=== PATIENT | male | born 1985 | race Caucasian/White ===

== ENCOUNTER 2024-01-31 02:21 | Emergency (ER) | payer OTHER, SELFPAY ==
[2024-01-31 02:45] VITALS: BP 131/79; PULSE 77; RESP 17; TEMP 36.4; O2SAT 95; BMI 29.1
[2024-01-31 03:07] VITALS: BP 118/79; PULSE 67; RESP 16; TEMP 36.6; O2SAT 94
[2024-01-31 03:08] LABS: MANUAL DIFF FLAG NO
[2024-01-31 03:10] LABS: Basophils Absolute Auto 0.1 X10*3/uL (0.0-0.2); Basophils Percent Auto 0.5 % (0-2); Eosinophils Absolute Auto 1.1 X10*3/uL (0.0-0.4); Eosinophils Percent Auto 8.8 % (0-4); Hematocrit 45.1 % (42.0-52.0); Hemoglobin 15.6 g/dl (14.0-18.0); Imm Gran Abs Auto 0.08 X10*3/uL (0.00-0.03); Imm Gran Pct Auto 0.7 % (0.0-0.4); Lymphocytes Absolute Auto 3.4 X10*3/uL (1.2-4.9); Lymphocytes Percent Auto 28.4 % (20-40); Mean Corpuscular HGB Conc 34.6 g/dl (31.0-36.0); Mean Corpuscular Hemoglobin 29.3 pg (27.0-33.0); Mean Corpuscular Volume 84.6 fL (80.0-98.0); Mean Platelet Volume 9.5 fL (9.4-12.4); Monocytes Absolute Auto 0.8 X10*3/uL (0.1-1.2); Monocytes Percent Auto 6.4 % (2-11); Neutrophils Absolute Auto 6.7 x10*3/uL (2.0-8.3); Neutrophils Percent Auto 55.2 % (45-73); Platelet Count 235 X10*3/uL (160-400); Red Blood Count 5.33 X10*6/uL (4.60-5.80); Red Cell Distribution Width 12.8 % (11.0-16.0); White Blood Count 12.1 X10*3/uL (4.8-10.8)
[2024-01-31 03:35] LABS: Alanine Aminotransferase 27 U/L (0-40); Albumin Level 4.1 g/dL (3.5-5.0); Alkaline Phosphatase 74 U/L (39-117); Anion Gap 13 (12-20); Aspartate Amino Transferase 21 U/L (5-37); Bilirubin Total 0.2 mg/dL (0.0-1.0); Blood Urea Nitrogen 14 mg/dL (9-16); Calcium 9.5 mg/dL (8.4-10.2); Carbon Dioxide 28 mmol/L (22-29); Chloride 102 mmol/L (96-108); Creatinine Clr Calc Pharmacy 136.5; Estimated Glomerular Filt Rate > 60; Glucose Random 113 mg/dL (60-115); Lipase 32 U/L (8-78); Potassium 4.1 mmol/L (3.3-5.1); Sodium 139 mmol/L (135-145); Total Protein 7.7 g/dL (6.5-8.0)
[2024-01-31 03:46] LABS: Influenza A PCR NEGATIVE (Negative); Influenza B PCR NEGATIVE (Negative); Resp Syncy Virus RNA Qual PCR NEGATIVE (Negative); SARS COV2 PCR INHOUSE NEGATIVE (Negative)
--- OUTSIDE RECORDS SUMMARY | 2024-01-31 04:29 | XMS_ITS | Continuity of Care Document ---
Author Organization [facility] Address [address] [place] [address]- Care Team Providers Care Dredge Boat Engineer Name Role Phone Stephani RODRIGUEZ, Zoë Hay Primary Care Physician [place] [facility] [place](s): 02/09/20 - 02/19/20 [facility] [address] [place] [address]- [facility] Attending Physician: AdmKaila durant Admitting Physician: Admtr, Kaila Referring Physician: Admtr, Ar8 Allergies, Adverse Reactions, Alerts Substance Reaction Severity Status NKA Active Medications Ativan Tablet 1, mg, By Mouth, 3 times a day, 10, 0, 0, 10/03/07 18:10:53, as needed for muscle spasms, Print DEANumber, ADS OPPTHS, 68, Constant Indicator Start Date: 10/03/07 Status: Ordered Flonase 50 mcg/inh nasal spray 1 sprays, Nares, Both, Daily in AM, # 15.8 mL, 1 Refills, Maintenance, 12/09/19 16:19:00 EST, [place], [id number], 1 sprays Nares, Both Daily in AM, 175, cm, 12/09/19 16:09:00 EST, Height Start Date: 12/09/19 Status: Ordered Percocet-5/325 325 mg-5 mg oral tablet 1-2 tablet, By Mouth, Every 4 to 6 hours, PRN Pain , Moderate, # 12 tablet, 0 Refills, Maintenance Start Date: 04/01/11 Status: Ordered ZyrTEC 10 mg oral tablet 1 tablet = 10 mg, By Mouth, Daily, # 90 tablet, 0 Refills, Maintenance, 01/04/20 14:05:00 EDT, [place], [id number], 175, cm, 12/09/19 16:09:00 EST, Height Start Date: 01/04/20 Status: Ordered Problem List Condition Effective Dates Status Health Status Inform ant Deviated septum(Confirmed) Active Social History Social History Type Response Smoking Status Never (less than 100 in lifetime) entered on: 02/24/19 Sex Male
--- OUTSIDE RECORDS SUMMARY | 2024-01-31 04:29 | XMS_ITS | Continuity of Care Document ---
Author Organization [facility] Address [address] [place] [address]- Care Team Providers Care Filling And Packing Supervisor Name Role Phone Stephani RODRIGUEZ, Zoë Hay Primary Care Physician Encounter [facility] Date(s): 07/20/20 - 08/19/20 [facility] [address] [place] [address]- [facility] Attending Physician: Admtr, Mac8 Admitting Physician: Admtr, Ar8 Referring Physician: Admtr, Ar8 Allergies, Adverse Reactions, [...] mL, 1 Refills, Maintenance, 12/09/19 16:19:00 EST, [place], [id number], 1 sprays Nares, Both Daily [...]
--- OUTSIDE RECORDS SUMMARY | 2024-01-31 04:29 | XMS_ITS | Continuity of Care Document ---
Author Organization [facility] ter Address [address] [place] [address]- Care Team Providers Care Combatant Swimmer Name Role Phone Estefanía Lucio MD Primary Care Physician [phone] [place] [facility]16[place]23 - 12/16/[address] [address]- Discharge Disposition: A-D/C Home Attending Physician: Jeff Suárez DO Admitting Physician: Jeff Suárez DO Referring Physician: Not on Staff, Referring MD Allergies, Adverse Reactions, Alerts No Known Allergies Medications buprenorphine 2 mg sublingual tablet, disintegrating 6 tablets, Sublingual, Daily, 0 Refills, Maintenance, 01/23/21 14:40:00 EDT, Tablet, Partial fill upon patient request if the prescription is for a schedule II opioid drug. Start Date: 01/23/21 Status: Ordered Problem List Condition Confirmation Course Effective Dates Status Health St atus Informant Anxiety Confirmed Active Deviated septum Confirmed Active Urethritis Confirmed Active Vital Signs Most recent to oldest [Reference Range]: 1 2 3 Height 178 cm (12/16/23 12:02 PM) Oxygen Saturation [94-100 %] 100 % (12/16/23 5:10 PM) 98 % (12/16/23 1:57 PM) 97 % (12/16/23 12:02 PM) Pulse Rate [55-90 bpm] 77 bpm (12/16/23 5:10 PM) 78 bpm (12/16/23 1:57 PM) 75 bpm (12/16/23 12:02 PM) Blood Pressure [90-138/55-84 mm Hg] 138/98mm Hg (12/16/23 5:10 PM) 139/100mm Hg *H* (12/16/23 1:57 PM) 166/96mm Hg *H* (12/16/23 12:02 PM) Respiratory Rate [16-30 br/min] 16 br/min (12/16/23 5:10 PM) 20 br/min (12/16/23 1:57 PM) 20 br/min (12/16/23 12:02 PM) Temperature [96.8-100.4 DegF] 98.0 DegF (12/16/23 12:02 PM) Mode of Delivery (Oxygen) Room air (12/16/23 5:10 PM) Room air (12/16/23 1:57 PM) Room air (12/16/23 12:02 PM) Blood pressure sites Arm, left (12/16/23 12:02 PM) Temperature Route Oral (12/16/23 12:02 PM) Dry Weight 87 kg (12/16/23 12:02 PM) Social History Social History Type Response Smoking Status Never (less than 100 in lifetime) entered on: 02/24/19 Sex Male Patient Care team information Care Team Personnel Name: Khadijah RODRIGUEZ, Estefanía Easley Position: [facility] Outreach Member Role: PCP Address: Address: [address] [place] [address]- Care Team Related Persons Name: ELLIE MORENO Address: home [address] [place] [address]
--- OUTSIDE RECORDS SUMMARY | 2024-01-31 04:29 | XMS_ITS | Continuity of Care Document ---
Author Organization [facility] ter Address [address] [place] [address]- Care Team Providers Care Senior Loss Control Specialist Name Role Phone Zoë Styles MD Primary Care Physician [place] [facility] [place]/29/21 - 01/29/[address] [address] Discharge Disposition: A-D/C Home Attending Physician: Reed Kearney MD Admitting Physician: Reed Kearney MD Referring Physician: Reed Kearney MD Allergies, Adverse Reactions, Alerts Substance Reaction Severity Status NKA Active Medications buprenorphine 2 mg sublingual tablet, disintegrating 6 tablets, Sublingual, Daily, 0 Refills, Maintenance, 01/23/21 14:40:00 EDT, Tablet, Partial fill upon patient request if the prescription is for a schedule II opioid drug. Start Date: 01/23/21 Status: Ordered Problem List Condition Effective Dates Status Health Status Inform ant Anxiety(Confirmed) Active Deviated septum(Confirmed) Active Urethritis(Confirmed) Active Vital Signs Most recent to oldest [Reference Range]: 1 2 3 Height 177.80 cm (01/29/21 2:35 PM) 177.80 cm (01/23/21 2:45 PM) Weight 77.1 kg (01/29/21 2:35 PM) 77.27 kg (01/23/21 2:45 PM) Oxygen Saturation [94-100 %] 99 % (01/29/21 4:45 PM) 98 % (01/29/21 4:30 PM) 99 % (01/29/21 4:15 PM) Pulse Rate [55-90 bpm] 76 bpm (01/29/21 2:35 PM) Body Mass Index [18.5-24.99] 24.39 (01/29/21 2:35 PM) 24.44 (01/23/21 2:45 PM) Blood Pressure [90-138/55-84 mm Hg] 117/73mm Hg (01/29/21 4:45 PM) 101/69mm Hg (01/29/21 4:30 PM) 125/72mm Hg (01/29/21 4:15 PM) Respiratory Rate [16-30 br/min] 14 br/min *L* (01/29/21 4:45 PM) 6 br/min *L* (01/29/21 4:30 PM) 13 br/min *L* (01/29/21 4:15 PM) Temperature [96.8-100.4 DegF] 98.6 DegF (01/29/21 4:45 PM) 98.0 DegF (01/29/21 4:00 PM) 99.2 DegF (01/29/21 2:35 PM) Liters per Minute 6 L/min (01/29/21 4:00 PM) Mode of Delivery (Oxygen) Room air (01/29/21 4:45 PM) Room air (01/29/21 4:30 PM) Room air (01/29/21 4:15 PM) Temperature Route Temporal (01/29/21 4:45 PM) Temporal (01/29/21 4:00 PM) Temporal (01/29/21 2:35 PM) Dry Weight 77.27 kg (01/23/21 2:45 PM) Weight Obtained Via Patient/family state d (01/23/21 2:45 PM) Dry Weight Obtained Via Patient/family s tated (01/23/21 2:45 PM) Social History Social History Type Response Smoking Status Never (less than 100 in lifetime) entered on: 02/24/19 Sex Male
--- OUTSIDE RECORDS SUMMARY | 2024-01-31 04:29 | XMS_ITS | Continuity of Care Document ---
Author Organization [facility] Address [address] [place] [address]- Care Team Providers Care Waste Examiner Name Role Phone Stephani RODRIGUEZ, Zoë Hay Primary Care Physician Encounter [facility] Date(s): 05/26/20 - 06/25/20 [facility] [address] [place] [address]- [facility] Allergies, Adverse Reactions, Alerts Substance Reaction Severity [...] mL, 1 Refills, Maintenance, 12/09/19 16:19:00 EST, [place], [id number], 1 sprays Nares, Both Daily [...]
--- OUTSIDE RECORDS SUMMARY | 2024-01-31 04:29 | XMS_ITS | Continuity of Care Document ---
Author Organization [facility] Address [address] [place] [address]- Care Team Providers Care Meat Pumper Name Role Phone Stephani RODRIGUEZ, Zoë Hay Primary Care Physician Encounter [facility] Date(s): 06/06/20 - 07/06/20 [facility] [address] [place] [address]- [facility] Allergies, Adverse Reactions, Alerts Substance Reaction Severity [...] mL, 1 Refills, Maintenance, 12/09/19 16:19:00 EST, [place], [id number], 1 sprays Nares, Both Daily [...]
--- OUTSIDE RECORDS SUMMARY | 2024-01-31 04:29 | XMS_ITS | Continuity of Care Document ---
Author Organization [facility] Address [address] [place] [address]- Care Team Providers Care Roofer Name Role Phone Stephani RODRIGUEZ, Zoë Hay Primary Care Physician Encounter [facility] Date(s): 03/14/20 - 06/30/20 [facility] [address] [place] [address]- [facility] Attending Physician: Phill [place] MD Allergies, Adverse Reactions, Alerts Substance Reaction [...] mL, 1 Refills, Maintenance, 12/09/19 16:19:00 EST, [place], [id number], 1 sprays Nares, Both Daily [...]
--- OUTSIDE RECORDS SUMMARY | 2024-01-31 04:29 | XMS_ITS | Continuity of Care Document ---
Author Organization [facility] Address [address] [place] [address]- Care Team Providers Care Educational Guidance Counselor Name Role Phone Zoë Styles MD Primary Care Physician [place] [facility] [place] 03/10/20 [facility] [address] [place] [address]- [facility] Attending Physician: Cristina RODRIGUEZ, Phill Mcqueen Referring Physician: Zoë Styles MD Allergies, Adverse Reactions, Alerts Substance Reaction [...] mL, 1 Refills, Maintenance, 12/09/19 16:19:00 EST, [place], [id number], 1 sprays Nares, Both Daily [...]
--- NOTE | 2024-01-31 04:49 | PC.NURSE ---
Pt attmepted to provide a urine sample but was unsuccessful. Pt stated he feels like he has to go. Bladder scan showed 268mL. MD aware.
[2024-01-31 05:11] LABS: Appearance Urine Cloudy; Color Urine Yellow; Glucose Urine UA Negative (Negative); Leukocyte Esterase Urine Trace (Negative); Nitrite Urine Negative (Negative); PH 6.5 (5.0-9.0); UMIC TRIGGER UACC YES; Urine Blood Negative (Negative); Urine Ketones Negative (Negative); Urine Protein Negative (Neg-Trace)
[2024-01-31 05:14] LABS: Bacteria Urine None Seen (None Seen); Hyaline Casts Urine 0-2 /LPF (0-2); RBC Urine 0-2 /HPF (0-2); Squamous Epithelial Cell Urine 0-2 /HPF (0-2); WBC Urine 0-5 /HPF (0-5)
[2024-01-31 05:28] VITALS: BP 121/70; PULSE 66; RESP 18; TEMP 36.7; O2SAT 94
--- NOTE | 2024-01-31 06:53 | ED_ITS ---
HPI - Abdominal Pain General Chief Complaint: Abdominal Pain Stated Complaint: Abd pain/Vomiting/Cold sweats Time Seen by Provider: 01/31/24 04:55 Source: patient Mode of arrival: ambulatory Limitations: no limitations History of Present Illness HPI narrative: Patient comes to the emergency room complaining of abdominal discomfort, generalized malaise, sinus pressure, subjective fever, occasional nausea. Patient denies chest pain or shortness of breath. No significant abdominal pain. Related Data Allergies Allergy/AdvReac Type Severity Reaction Status Date / Time No Known Allergies Allergy Verified 01/31/24 02:46 Review of Systems Review of Systems Constitutional : No Weight loss, No Fever, No Chills, No Night Sweats, No Fatigue, complaining of generalized malaise ENT/Mouth : No Hearing loss, No Ear Pain, No Nasal Congestion, No Sinus Pain, No Hoarseness, No sore throat, No Rhinorrhea, No Swallowing Difficulty Eyes: No Eye Pain, No Swelling, No Redness, No Foreign Body, No Discharge, No Vision Changes Cardiovascular : No Chest Pain, No SOB, No Dyspnea on Exertion, No Orthopnea, No Edema, No Palpitations Respiratory : No Cough, No Sputum, No Wheezing, No Smoke Exposure, No Dyspnea Gastrointestinal : Complaining of nausea, 1 episode of vomiting, No Diarrhea, No Constipation, No significant abdominal pain, only mild cramping, discomfort Genitourinary : no irregular bleeding, No Dysuria, No Urinary Frequency, No Hematuria, No Urinary Incontinence, No Urgency, No Flank Pain, No Urinary Flow Changes, No Hesitancy Musculoskeletal : No joint pain, No Myalgias, No Joint Swelling Skin : No Skin Lesions, No rash Neuro : No Weakness, No Numbness, No Paresthesias, No Loss of Consciousness, No Dizziness, No Headache Psych : No Anxiety/Panic, No Depression, No SI/HI/AH/VH, No Social Issues, Heme/Lymph: No Bruising, No Bleeding,No Lymphadenopathy Endocrine : No Polyuria, No Polydipsia, No Temperature Intolerance [facility] Social History Social History (System 11/22/21 @ 13:25 by Kayla Raymond) Smoked in Last 30 Days: No Advance Directives: No Advance Directives Information Provided: Yes Physical Exam ED Vital Signs: Vital Signs - 24 hr 01/31/24 02:45 01/31/24 03:07 01/31/24 05:28 Temperature 97.5 F 97.8 F 98.1 F Pulse Rate 77 67 66 Respiratory Rate 17 16 18 Blood Pressure 131/79 118/79 121/70 Pulse Oximetry 95 94 94 Oxygen Delivery Method Room Air Room Air Room Air BMI result Body Mass Index 29.1 Const Other: Appearance: Alert. Oriented X3. No acute distress. Eyes: Pupils equal, round and reactive to light. ENT: Pharynx normal. Neck: Normal inspection. Neck supple. No lymph nodes noted. No crepitus CVS: Normal heart rate and rhythm. Pulses normal. Normal S1 and S2 Respiratory: No respiratory distress. Breath sounds normal. No Wheezing. No rales Abdomen: Soft and nontender. No rigidity. No distention. Skin: Skin warm and dry. Normal skin color. Normal skin turgor. Extremities: No lower extremity edema. No Lacerations. No Rash Neuro: Oriented X 3. No motor deficit. No sensory deficit. Moving all extremities. No slurred speech. CN 2 through 12 grossly intact Psych: calm, cooperative, normal affect Course Course Course Narrative: -my interpretation of labs, 12.14 white blood cell count, likely reactive leukocytosis, rest of hematology within normal limits. Chemistry within normal limits, LFTs normal, lipase normal, urinalysis negative for UTI, serology negative for influenza RSV and COVID Medical Decision Making Differential Diagnosis Differential Diagnoses: The differential diagnosis associated with the presentation includes (COVID, RSV, influenza, COVID, UTI) Lab Data [facility] Lab Attestation statement: I reviewed the patient's lab results. 01/31/24 03:01 01/31/24 03:01 Labs: Lab Results 01/31/24 01/31/24 Range/Units 03:01 05:06 WBC 12.1 H (4.8-10.8) X10*3/uL RBC 5.33 (4.60-5.80) X10*6/uL Hgb 15.6 (14.0-18.0) g/dl Hct 45.1 (42.0-52.0) % MCV 84.6 (80.0-98.0) fL MCH 29.3 (27.0-33.0) pg MCHC 34.6 (31.0-36.0) g/dl RDW 12.8 (11.0-16.0) % Plt Count 235 (160-400) X10*3/uL MPV 9.5 (9.4-12.4) fL Immature Gran % (Auto) 0.7 H (0.0-0.4) % Neut % (Auto) 55.2 (45-73) % Lymph % (Auto) 28.4 (20-40) % Bremer % (Auto) 6.4 (2-11) % Eos % (Auto) 8.8 H (0-4) % Baso % (Auto) 0.5 (0-2) % Lymph # (Auto) 3.4 (1.2-4.9) X10*3/uL Bremer # (Auto) 0.8 (0.1-1.2) X10*3/uL Eos # (Auto) 1.1 H (0.0-0.4) X10*3/uL Baso # (Auto) 0.1 (0.0-0.2) X10*3/uL Abs Immat Gran (auto) 0.08 H (0.00-0.03) X10*3/uL Absolute Neuts (auto) 6.7 (2.0-8.3) x10*3/uL Absolute Nucleated RBC 0.000 (0.0-0.012) X10*3/uL Nucleated RBC % (auto) 0.0 (0.0-0.2) /100WBC Sodium 139 (135-145) mmol/L Potassium 4.1 (3.3-5.1) mmol/L Chloride 102 (96-108) mmol/L Carbon Dioxide 28 (22-29) mmol/L Anion Gap 13 (12-20) BUN 14 (9-16) mg/dL Creatinine 0.87 (0.5-1.4) mg/dL Estim Creat Clear Calc 136.5 Estimated GFR > 60 Random Glucose 113 (60-115) mg/dL Calcium 9.5 (8.4-10.2) mg/dL Total Bilirubin 0.2 (0.0-1.0) mg/dL AST 21 (5-37) U/L ALT 27 (0-40) U/L Alkaline Phosphatase 74 (39-117) U/L Total Protein 7.7 (6.5-8.0) g/dL Albumin 4.1 (3.5-5.0) g/dL Lipase 32 (8-78) U/L Urine Color Yellow Urine Appearance Cloudy Urine pH 6.5 (5.0-9.0) Ur Specific [place] 1.020 (1.005-1.025) Urine Protein Negative (Neg-Trace) mg/dL Urine Glucose (UA) Negative (Negative) mg/dL Urine Ketones Negative (Negative) mg/dL Urine Blood Negative (Negative) Urine Nitrite Negative (Negative) Ur Leukocyte Esterase Trace H (Negative) Urine RBC 0-2 (0-2) /HPF Urine WBC 0-5 (0-5) /HPF Ur Squamous Epith Cells 0-2 (0-2) /HPF Urine Bacteria None Seen (None Seen) Hyaline Casts 0-2 (0-2) /LPF Influenza Type A (PCR) NEGATIVE (Negative) Influenza Type B (PCR) NEGATIVE (Negative) RSV RNA Qual (PCR) NEGATIVE (Negative) SARS-CoV-2 RNA (RT-PCR) NEGATIVE (Negative) Discharge Plan Discharge Clinical Impression: Acute viral syndrome Patient Disposition: Home, Self-Care Instructions: Viral Syndrome (ED) Additional Instructions: Please follow-up with your primary care physician tomorrow. If you have any worsening or new symptoms, please return to the emergency room or call 911 Print Language: Icelandic
[2024-01-31 07:17] VITALS: BP 114/70; PULSE 88; RESP 14; TEMP 36.7; O2SAT 93
== END 2024-01-31 07:20 | disposition home or self-care (01) ==
PROVIDERS: Emergency Provider Emergency Medicine
DX: B34.9 Viral infection, unspecified (principal); R10.30 Lower abdominal pain, unspecified; R11.2 Nausea with vomiting, unspecified; Z11.52 Encounter for screening for COVID-19; Z20.822 Contact with and (suspected) exposure to COVID-19; Z79.899 Other long term (current) drug therapy
CPT/HCPCS: 0241U; 36415; 80053; 81001; 83690; 85025; 99283; 99284

== ENCOUNTER 2024-06-11 02:54 | Emergency (ER) | payer OTHER, SELFPAY ==
[2024-06-11 03:11] VITALS: BP 135/86; PULSE 109; RESP 20; TEMP 36.6; O2SAT 98; BMI 28.1
--- NOTE | 2024-06-11 03:23 | ECG_ITS ---
Test Reason : ANXIETY Blood Pressure : / mmHG Vent. Rate : 079 BPM Atrial Rate : 079 BPM P-R Int : 150 ms QRS Dur : 092 ms QT Int : 366 ms P-R-T Axes : 058 009 003 degrees QTc Int : 419 ms Normal sinus rhythm Nonspecific T wave abnormality Abnormal ECG No previous ECGs available Referred By: Aby Haider Electronically Signed By:DIANNA PADGETT
--- NOTE | 2024-06-11 03:24 | ED_ITS ---
HPI - Anxiety General Chief Complaint: Anxiety Stated Complaint: anxiety Time Seen by Provider: 06/11/24 03:19 Source: patient Mode of arrival: ambulatory Limitations: no limitations History of Present Illness ED Provider: Dr. Aby Haider HPI narrative: Patient comes to the emergency room complaining of anxiety. Patient states that for about a year and a half he has been taking Xanax almost every day. Patient states that he gets it off the street. Patient does not have a psychiatrist. Patient states that for 2 days he has not been taking any Xanax, patient states that he is withdrawing from benzodiazepines. Patient states that he is interested in outpatient therapy. Patient denies chest pain or shortness of breath. Patient used feels very anxious. Patient denies SI or HI Related Data Allergies Allergy/AdvReac Type Severity Reaction Status Date / Time No Known Allergies Allergy Verified 06/11/24 03:11 Review of Systems Review of Systems: Constitutional : No Weight loss, No Fever, No Chills, No Night Sweats, No Fa tigue, No Malaise ENT/Mouth : No Hearing loss, No Ear Pain, No Nasal Congestion, No Sinus Pain, No Hoarseness, No sore throat, No Rhinorrhea, No Swallowing Difficulty Eyes: No Eye Pain, No Swelling, No Redness, No Foreign Body, No Discharge, No Vision Changes Cardiovascular : No Chest Pain, No SOB, No Dyspnea on Exertion, No Orthopnea, No Edema, No Palpitations Respiratory : No Cough, No Sputum, No Wheezing, No Smoke Exposure, No Dyspnea Gastrointestinal : No Nausea, No Vomiting, No Diarrhea, No Constipation, No abdominal Pain, No Hematochezia, No Melena Genitourinary : no irregular bleeding, No Dysuria, No Urinary Frequency, No Hematuria, No Urinary Incontinence, No Urgency, No Flank Pain, No Urinary Flow Changes, No Hesitancy Musculoskeletal : No joint pain, No Myalgias, No Joint Swelling Skin : No Skin Lesions, No rash Neuro : No Weakness, No Numbness, No Paresthesias, No Loss of Consciousness, No Dizziness, No Headache Psych : Complaining of anxiety, no depression No SI/HI/AH/VH, No Social Issues, Heme/Lymph: No Bruising, No Bleeding,No Lymphadenopathy Endocrine : No Polyuria, No Polydipsia, No Temperature Intolerance [facility] Past Medical History Medical History (Updated 06/11/24 @ 03:27 by Aby Haider MD) Anxiety Social History Social History (System 11/22/21 @ 13:25 by Kayla Rayomnd) Advance Directives: No Physical Exam Vital Signs: Vital Signs: Last Vital Signs Temp 97.8 F 06/11/24 03:11 Pulse 109 H 06/11/24 03:11 Resp 20 06/11/24 03:11 BP 135/86 06/11/24 03:11 Pulse Ox 98 06/11/24 03:11 O2 Del Method Room Air 06/11/24 03:11 BMI result Body Mass Index 28.1 Const: Other: Appearance: Alert. Oriented X3. No acute distress. Eyes: Pupils equal, round and reactive to light. ENT: Pharynx normal. Neck: Normal inspection. Neck supple. No lymph nodes noted. No crepitus CVS: Normal heart rate and rhythm. Pulses normal. Normal S1 and S2 Respiratory: No respiratory distress. Breath sounds normal. No Wheezing. No rales Abdomen: Soft and nontender. No rigidity. No distention. Skin: Skin warm and dry. Normal skin color. Normal skin turgor. Extremities: No lower extremity edema. No Lacerations. No Rash Neuro: Oriented X 3. No motor deficit. No sensory deficit. Moving all extremities. No slurred speech. CN 2 through 12 grossly intact Psych: calm, cooperative, seems anxious, tapping his foot repeatedly Course Course Course Narrative: -patient offered 2 mg of p.o. lorazepam. -my interpretation of EKG: Normal sinus rhythm, heart rate 79, no ST segment depression or elevation, T-wave inversion, QTC 419 -care team pending to provide him with outpatient resources as requested - Medications Administered Discontinued Medications Generic Name Dose Route Start Last Admin Trade Name Mandy PRN Reason Stop Dose Admin Lorazepam 2 mg 06/11/24 03:23 06/11/24 03:41 Lorazepam 1 Mg Tablet PO 06/11/24 03:24 2 mg ONCE ONE Administration Discharge Plan Discharge Clinical Impression: Anxiety Patient Disposition: Home, Self-Care Instructions: Anxiety (ED) Additional Instructions: Please follow-up with your primary care physician tomorrow. If you have any worsening or new symptoms, please return to the emergency room or call 911 Print Language: Kiswahili
[2024-06-11] MEDS: LORazepam 1 MG TABLET 2 MG PO (03:41)
--- NOTE | 2024-06-11 04:00 | MHC.CARE ---
Pt was given information regarding [facility] so that he can self refer for addiction services. He was also given information regarding the [facility] .
--- NOTE | 2024-06-11 04:12 | PC.NURSE ---
pt is axox4 speaking full clear sentences. denies si/hi. pleasant, calm/cooperative. dad at bedside. pt reports sx improved after medicated per dec. CARE team provided outpt resources pt verbalizes understanding and agrees to f/u.
[2024-06-11 04:13] VITALS: BP 135/86; PULSE 109; RESP 20; TEMP 36.6; O2SAT 98
== END 2024-06-11 04:13 | disposition home or self-care (01) ==
PROVIDERS: Emergency Provider Emergency Medicine; PCP Physician Assistant
DX: F41.9 Anxiety disorder, unspecified (principal)
CPT/HCPCS: 93005; 99283